=== PATIENT | female | born 1995 | race Caucasian/White ===

== ENCOUNTER 2021-09-10 00:11 | Inpatient (IN) | payer BC ==
[2021-09-10] MEDS ORDERED: NS w/ Oxytocin 30 units 500 ML ONE ×2 (00:59→03:05)
[2021-09-10 01:22] VITALS: BMI 28.1
[2021-09-10] MEDS ORDERED: Butorphanol Tartrate 1 MG/ML VIAL SLOW IVP PRN (02:10)
[2021-09-10] MEDS ORDERED: hydrALAZINE 20 MG/ML VIAL SLOW IVP PRN ×2 (02:10→04:23)
[2021-09-10] MEDS ORDERED: Ondansetron PF 4 MG/2 ML Vial IVP PRN (02:10)
[2021-09-10] MEDS ORDERED: Promethazine HCl 25 MG/ML VIAL IM PRN (02:10)
[2021-09-10 02:32] LABS: Hemoglobin 13.4 g/dL (12.0-15.5); Mean Corpuscular HGB CONC 33.5 g/dL (32.0-36.0); Mean Corpuscular Hemoglobin 28.4 pg (27.0-33.0); Mean Corpuscular Volume 84.7 fl (81.6-98.3); Mean Platelet Volume 10.8 fl (7.4-10.4); Platelet Count 240 10x3/uL (150-450); RBC Distribution Width 14.2 % (11.5-14.5); Red Blood Cell (RBC) Count 4.72 10x6/uL (3.90-5.03); White Blood Cell (WBC) Count 12.1 10x3/uL (3.5-10.5)
[2021-09-10] MEDS ORDERED: Oxytocin 10 UNITS/ML VIAL ONE (03:03)
[2021-09-10] MEDS ORDERED: Misoprostol 200 MCG TAB ONE (03:04)
[2021-09-10 03:06] LABS: Hep B Surf Ag Non-Reactive S/CO (NonReactive); Syphilis Antibody Nonreactive (Nonreactive); Syphilis Antibody Index 0.05 S/CO (<1.00 Non-Reactive)
[2021-09-10 03:08] LABS: HBSAg Index 0.18 S/CO (0-0.99)
[2021-09-10] MEDS ORDERED: Boostrix 0.5 ML (Tdap) VIAL IM ONE (04:23)
[2021-09-10] MEDS ORDERED: traMADol HCl 50 MG TAB PO PRN ×2 (04:23)
[2021-09-10] MEDS ORDERED: Milk Of Magnesia 30 ML UDCUP PO PRN (04:23)
[2021-09-10] MEDS ORDERED: Bisacodyl 10 MG SUPP PR PRN (04:23)
[2021-09-10] MEDS ORDERED: Benzocaine-Menthol 82.5 ML CAN TOP PRN (04:23)
[2021-09-10] MEDS ORDERED: Lanolin Ointment 7 GM TUBE TOP PRN (04:23)
[2021-09-10] MEDS ORDERED: diphenhydrAMINE 25 MG CAP PO PRN (04:23)
[2021-09-10] MEDS ORDERED: Misoprostol 200 MCG TAB VAG PRN (04:23)
[2021-09-10] MEDS ORDERED: NS w/ Oxytocin 30 units 500 ML IV SCH (05:00)
[2021-09-10] MEDS: Lactated Ringer's 1,000 ML IV SCH ×3 (08:19→19:22)
[2021-09-10] MEDS: Ferrous Sulfate 325 MG TAB PO SCH ×2 (08:20→19:22)
[2021-09-10] MEDS: Docusate 100 MG CAP PO SCH ×2 (08:22→22:14)
[2021-09-10] MEDS: Prenatal Vitamin 1 TAB PO SCH (08:22)
[2021-09-10] MEDS: Ibuprofen 800 MG TAB PO SCH ×3 (11:11→22:14)
[2021-09-10 16:04] LABS: SARS-CoV-2 PCR by NAA Not Detected (NotDetected)
[2021-09-11] MEDS: Ibuprofen 800 MG TAB PO SCH ×2 (05:17→14:52)
[2021-09-11] MEDS: Lactated Ringer's 1,000 ML IV SCH ×2 (08:13→13:34)
[2021-09-11] MEDS: Ferrous Sulfate 325 MG TAB PO SCH (08:15)
[2021-09-11] MEDS: Docusate 100 MG CAP PO SCH (09:10)
[2021-09-11] MEDS: Prenatal Vitamin 1 TAB PO SCH (09:10)
[2021-09-11 11:30] VITALS: BP 115/80; TEMP 97.8
== END 2021-09-11 15:00 | disposition home or self-care (01) | DRG 807 ==
LOC: CSHLD/OP 00:11 → CSHLD 00:12 → CSHPED 03:55
PROVIDERS: ADMIT Obstetrics & Gynecology; ATTEND Obstetrics & Gynecology
PROC: 10E0XZZ Delivery of Products of Conception, External Approach (ICD-10-PCS; principal; 2021-09-10)
PROC: 0KQM0ZZ Repair Perineum Muscle, Open Approach (ICD-10-PCS; 2021-09-10)
PROC: 10907ZC Drainage of Amniotic Fluid, Therapeutic from Products of Conception, Via Natural or Artificial Opening (ICD-10-PCS; 2021-09-10)
DX: O70.1 Second degree perineal laceration during delivery (principal); Z37.0 Single live birth; Z3A.39 39 weeks gestation of pregnancy; Z20.822 Contact with and (suspected) exposure to COVID-19
CPT/HCPCS: 36415; 85027; 86780; 86850; 86900; 86901; 87340; 99285; J0595; J2590; U0003; U0005